=== PATIENT | female | born 1990 | race American Indian/Alaskan Native ===

== ENCOUNTER 2016-12-06 00:01 | Outpatient (CLI) | payer MEDICAID ==
[2016-12-06] MEDS ORDERED: LACTATED RINGERS 500 ML IV ONE (00:11)
[2016-12-06 00:36] VITALS: BP 111/67
== END 2016-12-06 01:45 | disposition home or self-care (01) ==
LOC: TRG 00:01
PROVIDERS: ATTEND Obstetrics & Gynecology
DX: O46.93 Antepartum hemorrhage, unspecified, third trimester (principal); Z3A.39 39 weeks gestation of pregnancy
CPT/HCPCS: 59025; J7120

== ENCOUNTER 2016-12-11 14:36 | Inpatient (IN) | payer MEDICAID ==
[2016-12-11 15:26] LABS: Hemoglobin 12.5 gm/dl (10.1-14.3); Mean Corpuscular HGB Conc 35 % (30-34); Mean Corpuscular Hemoglobin 31 pg (28-32); Mean Corpuscular Volume 91 fl (79-97); Platelet Count 271 K/mm3 (140-440); Red Blood Count 3.98 M/mm3 (3.65-5.03); Red Cell Distribution Width 12.6 % (13.2-15.2); White Blood Count 13.7 K/mm3 (4.5-11.0)
[2016-12-11] MEDS ORDERED: ZOFRAN IV PRN (17:03)
[2016-12-11] MEDS ORDERED: NARCAN 0.4 MG/1 ML IV PRN (17:03)
[2016-12-11] MEDS ORDERED: MINERAL OIL PO PRN (17:03)
[2016-12-11] MEDS ORDERED: BRETHINE SUB-Q PRN (17:28)
[2016-12-11] MEDS ORDERED: ePHEDrine SULFATE IV PRN (17:29)
[2016-12-11] MEDS ORDERED: BRETHINE IVP PRN (17:29)
--- NOTE | 2016-12-11 17:50 | History and Physical Report ---
History of Present Illness Date of examination: 12/11/16 Date of admission: 12/11/16 14:36 Chief complaint: Labor pains History of present illness: Late entry to care; course complicated by Nuchal cord @ 20 Weeks; co-yuni with [facility]. Past History Past Medical History: no pertinent history Past Surgical History: other (knee (2007)) FLOORHAND History: chlamydia, herpes, trichomonas Family/Genetic History: hypertension Social history: no significant social history - Obstetrical History Expected Date of Delivery: 12/10/16 Actual Gestation: 40 Week(s) 1 Day(s) : 2 Para: 1 Hx # Term Pregnancies: 1 Number of Living Children: 1 #2 Gender: Female year: 2[age][birth year] Birthweight: 3.09 kg Method of Delivery: Vaginal Gestational age at delivery: 39 Complications: other (vaccum extraction) Medications and Allergies Allergies Allergy/AdvReac Type Severity Reaction Status Date / Time No Known Allergies Allergy Verified 08/21/15 07:23 Home Medications Medication Instructions Recorded Confirmed Last Taken Type Vitamin 1 tab PO DAILY 03/26/15 12/11/16 12/11/16 History Acetaminophen [Shake That Ache] 500 mg PO Q6HR PRN 08/21/15 12/11/16 12/11/16 History valACYclovir [Valtrex] 1 tab PO DAILY 08/21/15 12/11/16 12/11/16 History Active Meds: Active Medications Butorphanol Tartrate (Stadol) 2 mg IV Q2H PRN PRN Reason: Pain , Severe (7-10) Dinoprostone (Cervidil) 10 mg VG ONCE ONE Stop: 12/11/16 18:01 Last Admin: 12/11/16 17:43 Dose: 10 mg Lactated Ringer's (Lactated Ringers) 1,000 mls @ 125 mls/hr IV DIRECT NELSON Oxytocin/Sodium Chloride (Pitocin/Ns 20 Unit/1000ml Drip) 20 units in 1,000 mls @ 125 mls/hr IV DIRECT NELSON Lidocaine (Xylocaine 2%) 20 ml INFILTRATI ONCE ONE Stop: 12/11/16 18:01 Mineral Oil (Mineral Oil) 30 ml PO QHS PRN PRN Reason: Constipation Naloxone HCl (Narcan 0.4 Mg/1 Ml) 0.1 mg IV Q2MIN PRN PRN Reason: Res Rate </= 8 or 02 SAT < 92% Ondansetron HCl (Zofran) 4 mg IV Q8H PRN PRN Reason: Nausea And Vomiting Review of Systems All systems: negative - Vital Signs Vital signs: Vital Signs Pulse BP 94 H 122/65 12/11/16 14:55 12/11/16 14:55 Temp Pulse Resp BP Pulse Ox 97.9 F 94 H 18 122/65 12/11/16 15:10 12/11/16 14:55 12/11/16 15:10 12/11/16 15:10 - Physical Exam Breasts: Positive: normal Cardiovascular: Regular rate Lungs: Positive: Clear to auscultation, Normal air movement Abdomen: Positive: normal appearance, soft, normal bowel sounds Genitourinary (Female): Positive: normal external genitalia, normal perenium Vagina: Positive: normal moisture Uterus: Positive: enlarged - Obstetrical FHR: category 1 Uterine Contraction Monitor Mode: External Cervical Dilatation: 3.5 Cervical Effacement Percentage: 50 station: -3 Uterine Contraction Pattern: Absent Uterine Tone Measurement Phase: Resting Results Result Diagrams: 12/11/16 14:50 Abnormal lab results 12/11/16 Range/Units 14:50 WBC 13.7 H (4.5-11.0) K/mm3 MCHC 35 H (30-34) % RDW 12.6 L (13.2-15.2) % All other labs normal. Assessment and Plan A: IUP @ 40 1/7 Weeks Category I Tracing GBS Negative P: Admit to L&D per routine orders Cervidil Induction
[2016-12-11] MEDS ORDERED: CERVIDIL VG ONE (18:00)
[2016-12-11] MEDS ORDERED: XYLOCAINE 2% INFILTRATI ONE (18:00)
[2016-12-11] MEDS ORDERED: PITOCin/NS 20 UNIT/1000ML DRIP 20 UNITS/1,000 ML BAG IV SCH (18:00)
[2016-12-11] MEDS: STADOL IV PRN (21:53)
[2016-12-11] MEDS: LACTATED RINGERS 1,000 ML IV SCH (22:00)
[2016-12-12] MEDS: STADOL IV PRN
[2016-12-12] MEDS: LACTATED RINGERS 1,000 ML IV SCH ×3 (00:41→05:26)
[2016-12-12] MEDS ORDERED: fentaNYL-BUPIV 2 MCG/ML-0.125% 200 MCG/100 ML BAG EPIDURAL ONE (01:48)
[2016-12-12] MEDS ORDERED: NARCAN 2 MG/2 ML IV PRN (01:52)
[2016-12-12] MEDS ORDERED: ePHEDrine SULFATE IV PRN (01:52)
--- NOTE | 2016-12-12 01:52 | Anesthesia Consultation ---
Anesthesia Consult and Med Hx Date of service: 12/12/16 - Airway Anesthetic Teeth Evaluation: Good ROM Head & Neck: Adequate Mental/Hyoid Distance: Adequate Mallampati Class: Class II Intubation Access Assessment: Good - Pulmonary Exam CTA: Yes - Cardiac Exam Cardiac Exam: No Murmur - Pre-Operative Health Status ASA Pre-Surgery Classification: ASA2 Proposed Anesthetic Plan: Epidural - Pulmonary Hx Asthma: No COPD: No Hx Pneumonia: No - Cardiovascular System Hx Hypertension: No - Central Nervous System Hx Seizures: No Hx Psychiatric Problems: No - Endocrine Hx Renal Disease: No Hx End Stage Renal Disease: No Hx Hypothyroidism: No Hx Hyperthyroidism: No - Hematic Hx Anemia: No Hx Sickle Cell Disease: No - Other Systems Hx Alcohol Use: No
[2016-12-12] MEDS ORDERED: fentaNYL-BUPIV 2 MCG/ML-0.125% 200 MCG/100 ML BAG EPIDURAL SCH (02:00)
[2016-12-12] MEDS ORDERED: ePHEDrine SULFATE ONE (02:33)
[2016-12-12] MEDS ORDERED: BRETHINE ONE (02:41)
[2016-12-12] MEDS ORDERED: NACL 0.9% 1000 ML 1,000 ML ONE (05:07)
--- NOTE | 2016-12-12 05:18 | Progress Note ---
Assessment and Plan A: IUP @ 40 2/7 Weeks Category II Tracing SROM Active Labor GBS Negative P: Internals X 2 Amnioinfusion Subjective - Subjective Date of service: 12/12/16 Interval history: Late entry to care; course complicated by Nuchal cord @ 20 Weeks; co-yuni with [facility]. Patient reports: loss of fluid, other (Resting well under epidural) Objective - Vital Signs Vital Signs: Vital Signs - 12hr 12/11/16 12/11/16 12/11/16 19:13 19:23 21:53 Temperature 97.6 F Pulse Rate 82 95 H Respiratory 20 20 Rate Blood Pressure 109/59 Blood Pressure 109/59 [Right Arm] O2 Sat by Pulse 96 Oximetry 12/11/16 12/11/16 12/11/16 22:59 23:04 23:09 Temperature 98.2 F Pulse Rate 82 76 67 Respiratory 18 Rate Blood Pressure 115/68 Blood Pressure 115/68 [Right Arm] O2 Sat by Pulse 93 95 95 Oximetry 12/11/16 12/11/16 12/11/16 23:14 23:19 23:24 Temperature Pulse Rate 74 74 71 Respiratory Rate Blood Pressure Blood Pressure [Right Arm] O2 Sat by Pulse 95 95 95 Oximetry 12/11/16 12/11/16 12/11/16 23:26 23:29 23:33 Temperature Pulse Rate 75 81 83 Respiratory Rate Blood Pressure Blood Pressure [Right Arm] O2 Sat by Pulse 94 95 94 Oximetry 12/11/16 12/12/16 12/12/16 23:34 00:00 01:20 Temperature Pulse Rate 82 91 H Respiratory 22 Rate Blood Pressure Blood Pressure [Right Arm] O2 Sat by Pulse 96 96 Oximetry 12/12/16 12/12/16 12/12/16 01:25 01:29 01:30 Temperature Pulse Rate 91 H 90 85 Respiratory Rate Blood Pressure Blood Pressure [Right Arm] O2 Sat by Pulse 96 92 99 Oximetry 12/12/16 12/12/16 12/12/16 01:33 01:35 01:37 Temperature Pulse Rate 96 H 86 84 Respiratory Rate Blood Pressure 126/91 123/81 113/70 Blood Pressure [Right Arm] O2 Sat by Pulse 97 Oximetry 12/12/16 12/12/16 12/12/16 01:39 01:40 01:42 Temperature Pulse Rate 90 98 H 93 H Respiratory Rate Blood Pressure 119/74 117/67 Blood Pressure [Right Arm] O2 Sat by Pulse 96 Oximetry 12/12/16 12/12/16 12/12/16 01:45 01:46 01:47 Temperature Pulse Rate 82 76 Respiratory Rate Blood Pressure 107/56 113/58 Blood Pressure [Right Arm] O2 Sat by Pulse 96 55 L Oximetry 12/12/16 12/12/16 12/12/16 01:49 01:50 01:51 Temperature Pulse Rate 79 81 81 Respiratory Rate Blood Pressure 107/57 102/67 Blood Pressure [Right Arm] O2 Sat by Pulse 95 Oximetry 12/12/16 12/12/16 12/12/16 01:52 01:53 01:55 Temperature Pulse Rate 77 77 Respiratory Rate Blood Pressure 103/55 105/61 Blood Pressure [Right Arm] O2 Sat by Pulse 82 L 95 Oximetry 12/12/16 12/12/16 12/12/16 01:57 01:59 02:00 Temperature Pulse Rate 75 75 78 Respiratory Rate Blood Pressure 101/58 107/66 Blood Pressure [Right Arm] O2 Sat by Pulse 96 Oximetry 12/12/16 12/12/16 12/12/16 02:02 02:05 02:06 Temperature 98.4 F Pulse Rate 78 77 Respiratory 20 Rate Blood Pressure Blood Pressure 107/66 [Right Arm] O2 Sat by Pulse 95 94 Oximetry 12/12/16 12/12/16 12/12/16 02:10 02:15 02:16 Temperature Pulse Rate 84 81 78 Respiratory Rate Blood Pressure 105/59 Blood Pressure [Right Arm] O2 Sat by Pulse 96 95 Oximetry 12/12/16 12/12/16 12/12/16 02:20 02:25 02:30 Temperature Pulse Rate 73 84 73 Respiratory Rate Blood Pressure 116/72 Blood Pressure [Right Arm] O2 Sat by Pulse 97 96 99 Oximetry 12/12/16 12/12/16 12/12/16 02:35 02:37 02:39 Temperature Pulse Rate 73 88 69 Respiratory Rate Blood Pressure 111/55 110/64 110/66 Blood Pressure [Right Arm] O2 Sat by Pulse 98 Oximetry 12/12/16 12/12/16 12/12/16 02:40 02:41 02:45 Temperature Pulse Rate 79 75 77 Respiratory Rate Blood Pressure 113/68 111/61 Blood Pressure [Right Arm] O2 Sat by Pulse 100 100 Oximetry 12/12/16 12/12/16 12/12/16 02:47 02:50 02:55 Temperature Pulse Rate 68 80 79 Respiratory Rate Blood Pressure 113/60 Blood Pressure [Right Arm] O2 Sat by Pulse 99 100 Oximetry 12/12/16 12/12/16 12/12/16 03:00 03:02 03:05 Temperature Pulse Rate 83 81 79 Respiratory Rate Blood Pressure 120/70 Blood Pressure [Right Arm] O2 Sat by Pulse 79 L 100 Oximetry 12/12/16 12/12/16 12/12/16 03:10 03:15 03:19 Temperature Pulse Rate 85 97 H 84 Respiratory Rate Blood Pressure 120/74 Blood Pressure [Right Arm] O2 Sat by Pulse 100 100 Oximetry 12/12/16 12/12/16 12/12/16 03:20 03:25 03:30 Temperature Pulse Rate 85 87 85 Respiratory Rate Blood Pressure Blood Pressure [Right Arm] O2 Sat by Pulse 100 100 100 Oximetry 12/12/16 12/12/16 12/12/16 03:32 03:35 03:40 Temperature Pulse Rate 83 76 80 Respiratory Rate Blood Pressure 122/73 Blood Pressure [Right Arm] O2 Sat by Pulse 100 100 Oximetry 12/12/16 12/12/16 12/12/16 03:45 03:49 03:50 Temperature Pulse Rate 112 H 83 95 H Respiratory Rate Blood Pressure 116/70 Blood Pressure [Right Arm] O2 Sat by Pulse 100 100 Oximetry 12/12/16 12/12/16 12/12/16 03:55 04:00 04:03 Temperature Pulse Rate 83 97 H 90 Respiratory Rate Blood Pressure 122/82 Blood Pressure [Right Arm] O2 Sat by Pulse 100 100 Oximetry 12/12/16 12/12/16 12/12/16 04:05 04:10 04:15 Temperature 97.7 F Pulse Rate 85 86 86 Respiratory 22 Rate Blood Pressure Blood Pressure [Right Arm] O2 Sat by Pulse 100 100 99 Oximetry 12/12/16 12/12/16 12/12/16 04:18 04:20 04:25 Temperature Pulse Rate 90 86 90 Respiratory Rate Blood Pressure 101/55 Blood Pressure [Right Arm] O2 Sat by Pulse 99 98 Oximetry 12/12/16 12/12/16 12/12/16 04:30 04:32 04:35 Temperature Pulse Rate 82 79 84 Respiratory Rate Blood Pressure 99/55 Blood Pressure [Right Arm] O2 Sat by Pulse 99 98 Oximetry 12/12/16 12/12/16 12/12/16 04:40 04:45 04:48 Temperature Pulse Rate 82 81 77 Respiratory Rate Blood Pressure 100/57 Blood Pressure [Right Arm] O2 Sat by Pulse 98 99 Oximetry 12/12/16 12/12/16 12/12/16 04:50 04:55 05:00 Temperature Pulse Rate 82 85 88 Respiratory Rate Blood Pressure Blood Pressure [Right Arm] O2 Sat by Pulse 99 100 100 Oximetry 12/12/16 12/12/16 12/12/16 05:03 05:05 05:10 Temperature Pulse Rate 86 88 85 Respiratory Rate Blood Pressure 101/58 Blood Pressure [Right Arm] O2 Sat by Pulse 100 100 Oximetry - Exam Breasts: normal Cardiovascular: Regular rate Lungs: Clear to auscultation Abdomen: Present: normal appearance, normal bowel sounds Uterus: Present: normal, firm, fundal height above umbilicus FHR: category 2 FHR comments: FHR: 140, moderate varability, - accels, +repetitive varabile decels Uterine Contraction Monitor Mode: Internal Cervical Dilatation: 8 (SROM of a large amount of clear observed prior to exam) Cervical Effacement Percentage: 90 station: -1 Uterine Contraction Pattern: Regular Uterine Contraction Intensity: Moderate Extremities: normal - Labs Labs: Abnormal Labs 12/11/16 14:50 WBC 13.7 H MCHC 35 H RDW 12.6 L Laboratory Results - last 24 hr 12/11/16 12/11/16 14:50 14:50 WBC 13.7 H RBC 3.98 Hgb 12.5 Hct 36.0 MCV 91 MCH 31 MCHC 35 H RDW 12.6 L Plt Count 271 Blood Type O POSITIVE Antibody Screen TNR GUZMAN Antibody Screen Negative
[2016-12-12] MEDS ORDERED: PITOCin/NS 30 UNIT/500ML 30 UNITS/500 ML BAG IV SCH (06:00)
[2016-12-12] MEDS ORDERED: NACL 0.9% 1000 ML 1,000 ML VG SCH (06:00)
[2016-12-12] MEDS ORDERED: PHENERGAN PO PRN (06:47)
[2016-12-12] MEDS ORDERED: MILK OF MAGNESIA PO PRN (06:47)
[2016-12-12] MEDS ORDERED: DULCOLAX PR PRN (06:47)
[2016-12-12] MEDS ORDERED: TUCKS PAD TP PRN (06:47)
[2016-12-12] MEDS ORDERED: PHENERGAN PR PRN (06:47)
[2016-12-12] MEDS ORDERED: ZOFRAN IV PRN (06:47)
[2016-12-12] MEDS ORDERED: BENADRYL PO PRN (06:47)
--- NOTE | 2016-12-12 06:55 | Procedure Note ---
OB Delivery Note - Delivery Date of Delivery: 12/12/16 (0631) Surgeon: LOKESH SHULTZ Estimated blood loss: 200cc - Vaginal Delivery presentation: vertex Delivery position: OA Intrapartum events: mult. late decelerations, mult.variable deceleratio Delivery induction: cervidil Delivery augmentation: pitocin Delivery monitor: internal FHT, internal uterine Route of delivery: Delivery placenta: spontaneous Delivery cord: 3 umbilical vessels Episiotomy: none Delivery laceration: none Anesthesia: epidural Delivery comments: of a live 7'14" male over a intact perineum under epidural anesthesia with Apgars of 8 and 9 at 0631 on 12/12/2016. Infant directly to maternal abd/chest, skin to skin contact. Spontaneous delivery of placenta complete and intact with [place] side presenting at 0636. Fundus is firm and midline located 4 below the U. Lochia scant. Delayed cord clamping and cutting : cord cut by infant's maternal grandmother. Cord blood collected; Placenta discarded. - A at 1 minute: 8 at 5 minutes: 9 Gender: Male (7'14)
[2016-12-12] MEDS ORDERED: SODIUM CHLORIDE FLUSH SYRINGE 10 ML IV NR (07:00)
[2016-12-12] MEDS: SENOKOT S PO SCH ×2 (09:21→19:45)
[2016-12-12] MEDS: MOTRIN PO SCH ×3 (09:22→23:04)
[2016-12-12] MEDS: NORCO 5/325 PO PRN ×2 (11:00→17:14)
[2016-12-12 19:28] LABS: Hematocrit 35.9 % (30.3-42.9); Hemoglobin 12.4 gm/dl (10.1-14.3)
[2016-12-13] MEDS: NORCO 5/325 PO PRN ×2 (04:14→22:39)
[2016-12-13] MEDS: MOTRIN PO SCH ×3 (05:11→18:23)
--- NOTE | 2016-12-13 08:12 | Progress Note ---
Assessment and Plan A: PPD # 1 stable P: Discharge home in am Subjective - Subjective Date of service: 12/13/16 Principal diagnosis: Patient reports: appetite normal : doing well Objective - Vital Signs Latest vital signs: Vital Signs Temp Pulse Resp BP 12/13/16 00:40 97.4 F L 67 20 112/58 12/12/16 19:19 98.1 F 70 18 101/63 12/12/16 12:50 98.2 F 70 18 98/54 12/12/16 08:23 97.8 F 91 H 18 108/64 Intake and Output 12/12/16 12/13/16 12/13/16 22:59 06:59 14:59 Intake Total 240 480 Balance 240 480 Intake: Oral 240 480 Other: Total, Intake Amount 240 240 # Voids Void 1 1 - Exam Breasts: Present: deferred Cardiovascular: Present: Regular rate Lungs: Present: Clear to auscultation Abdomen: Present: soft Vulva: both: normal Uterus: Present: fundal height below umbilicus Extremities: Present: normal Deep Tendon Reflex Grade: Normal +2
--- NOTE | 2016-12-13 08:14 | Discharge Summary ---
Providers - Providers Date of Admission: 12/11/16 14:36 Date of discharge: 12/14/16 Attending physician: MILY MORELOS MD Primary care physician: MILY MORELOS MD Hospitalization Reason for admission: induction of labor Delivery: Episiotomy: none Laceration: none Incision: normal complications: none Discharge diagnosis: IUP at term delivered [place] baby: male Condition at discharge: Good Disposition: DC-01 TO HOME OR SELFCARE Plan - Provider Discharge Summary Activity: routine, no sex for 6 weeks, no strenuous exercise Diet: routine Instructions: routine Additional instructions: [] Smoking cessation referral if applicable(refer to patient education folder for contact #) [] Refer to [facility]'s [facility] Booklet Call your doctor immediately for: * Fever > 100.5 * Heavy vaginal bleeding ( >1 pad per hour) * Severe persistent headache * Shortness of breath * Reddened, hot, painful area to leg or breast * Drainage or odor from incision. * Keep incision clean and dry at all times and follow doctor's instructions regarding bathing/showering - Follow up plan Follow up: [facility] [Provider Group] - 6 Weeks
--- NOTE | 2016-12-13 10:21 | Progress Note ---
Subjective Date of service: 12/13/16 Principal diagnosis: Interval history: Patient seen post-delivery day,amblating and satisfied with epidural. Objective - Constitutional Vitals: Vital Signs - 12hr 12/13/16 12/13/16 00:40 08:00 Temperature 97.4 F L 98.0 F Pulse Rate [ 67 69 Right] Respiratory 20 18 Rate Blood Pressure 112/58 114/74 [Right Arm] - Labs CBC & Chem 7: 12/12/16 19:03
[2016-12-13] MEDS: LANSINOH TP PRN ×2 (13:34→22:52)
[2016-12-13] MEDS: SENOKOT S PO SCH (18:27)
[2016-12-14 09:41] VITALS: BP 104/53
[2016-12-14] MEDS: MOTRIN PO SCH (13:01)
== END 2016-12-14 13:11 | disposition home or self-care (01) | DRG 775 ==
LOC: LD 14:36 → OB 12-12 08:18
PROVIDERS: ADMIT Obstetrics & Gynecology; ATTEND Obstetrics & Gynecology
PROC: 3E0S3CZ (ICD-10-PCS; principal; 2016-12-12)
PROC: 10E0XZZ Delivery of Products of Conception, External Approach (ICD-10-PCS; principal; 2016-12-12)
PROC: 00HU33Z Insertion of Infusion Device into Spinal Canal, Percutaneous Approach (ICD-10-PCS; principal; 2016-12-12)
PROC: 3E0P7GC Introduction of Other Therapeutic Substance into Female Reproductive, Via Natural or Artificial Opening (ICD-10-PCS; principal; 2016-12-12)
DX: O76 Abnormality in fetal heart rate and rhythm complicating labor and delivery (principal); O69.81X0 Labor and delivery complicated by cord around neck, without compression, not applicable or unspecified; Z3A.40 40 weeks gestation of pregnancy; Z37.0 Single live birth; Z82.49 Family history of ischemic heart disease and other diseases of the circulatory system
CPT/HCPCS: 36415; 59200; 85014; 85018; 85027; 86850; 86900; 86901; 99211; A6250; G0463; J0595; J2590; J3105; J7030; J7120